=== PATIENT | male | born 1965 | race Two or more races ===

== ENCOUNTER 2022-05-28 12:59 | Emergency (ER) | payer SELFPAY ==
[~2022-05-28] VITALS: Ht 165.1 cm; Wt 94.3 kg
[~2022-05-28 12:59] MED LIST: NORPTMEDS
[2022-05-28] MEDS ORDERED: cloNIDine HCL 0.1 MG TAB PO ONE (13:15)
[2022-05-28 13:42] LABS: Basophils # (auto) 0 10 ^3/uL (0-0.2); Basophils % (auto) 0.2 % (0.0-2.0); Eosinophils # (auto) 0 10 ^3/uL (0-0.8); Eosinophils % (auto) 0.3 % (0.0-7.0); Hematocrit 46.3 % (41.0-53.0); Hemoglobin 16.1 g/dL (13.5-17.5); Lymphocytes % (auto) 18.3 % (10.0-50.0); Mean Corpuscular Hemoglobin 29.9 pg (28.0-32.0); Mean Corpuscular Hgb Conc. 34.8 g/dL (32.0-36.0); Mean Corpuscular Volume 85.7 fL (80.0-100.0); Monocytes # (auto) 0.7 10 ^3/uL (0-1.3); Monocytes % (auto) 6.4 % (0.0-12.0); Neutrophils # (auto) 8.2 10 ^3/uL (1.6-8.6); Neutrophils % (auto) 74.8 % (37.0-80.0); Red Cell Distribution Width 12.8 % (11.8-14.3)
[2022-05-28 14:04] LABS: Albumin 4.1 g/dL (3.4-5.0); Calcium 9.1 mg/dL (8.5-10.1); Potassium 3.5 mmol/L (3.5-5.1)
[2022-05-28 14:07] LABS: BUN/Creatinine Ratio 14.2; Bilirubin, Total 1.2 mg/dL (0.2-1.0); Total Protein 7.5 g/dL (6.4-8.2)
[2022-05-28] MEDS ORDERED: LISI20TA28 PO (15:54)
[2022-05-28] MEDS ORDERED: METO-289 PO (15:54)
[2022-05-28 17:14] VITALS: BP 152/84
== END 2022-05-28 17:11 | disposition home or self-care (01) ==
LOC: ER 12:59
DX: I10 Essential (primary) hypertension (principal); J45.909 Unspecified asthma, uncomplicated; Z88.6 Allergy status to analgesic agent; Z87.891 Personal history of nicotine dependence
CPT/HCPCS: 36415; 80053; 84484; 85025; 93005